=== PATIENT | male | born 1930 | race Caucasian/White ===

== ENCOUNTER 2016-09-10 15:37 | Observation (INO) | payer MEDICARE ==
[2016-09-10] MEDS ORDERED: cefTRIAXone(*) 1 GM in NS 0.9% 50 ML* 50 ML IVPB ONE (16:44)
[2016-09-10] MEDS ORDERED: Azithromycin IV(*) 500 MG in NS 0.9% 250 ML* 250 ML IVPB ONE (16:45)
[2016-09-10] MEDS: NS 0.9% 1000 ML* 3,000 ML IV ONE ×2 (17:17→18:04)
[2016-09-10 17:41] LABS: Hematocrit 42 % (42-52); Hemoglobin 14.2 g/dl (14.0-18.0); Mean Corpuscular HGB Conc 34 g/dl (31-36); Mean Corpuscular Hemoglobin 33 pg (27-31); Mean Corpuscular Volume 95 fL (80-94); Red Blood Count 4.37 10^6/ul (4.0-5.4); Red Cell Distribution Width 14 % (10.5-15); White Blood Count 5.7 10^3/ul (3.5-10.8)
[2016-09-10 17:43] LABS: Add Diff/Slide Review? Slide Review Added; Comments Flag Yes
[2016-09-10 17:47] LABS: Albumin 3.8 g/dL (3.2-5.2); BUN/Creatinine Ratio 16.5 (8-20); C Reactive Protein 28.87 mg/L (< 5.00); Calcium 8.5 mg/dL (8.6-10.3); EGFR African American 87.9 (>60); EGFR Non-African American 68.3 (>60); Globulin 2.6 g/dL (2-4); Potassium 3.4 mmol/L (3.5-5.0); Total Bilirubin 1.3 mg/dL (0.2-1.0); Total Protein 6.4 g/dL (6.4-8.9)
[2016-09-10 17:49] LABS: Troponin I 0.03 ng/mL (<0.04)
[2016-09-10 18:08] LABS: Mean Platelet Volume 9 um3 (7.4-10.4)
[2016-09-10 18:10] LABS: Add Path Review? YES; Eosinophils % 1 % (0-6); Immature Granulocytes 28 % (0-9); Neutrophil % 43 % (38-83); RBC Morphology Normal (Normal); Reactive Lymph % 2 % (0-6)
[2016-09-10 18:38] LABS: Urine Bacteria Absent (Absent); Urine Bilirubin Negative (Negative); Urine Glucose Negative (Negative); Urine Nitrite Negative (Negative)
--- NOTE | 2016-09-10 18:48 | RAD ---
INDICATION: Cough and fever COMPARISON: Most recent comparison chest x-ray is dated May 19, 2015 TECHNIQUE: PA and lateral views of the chest were obtained. FINDINGS: The heart and mediastinum are normal in size and contour. The lungs are grossly clear. There is no evidence of large pleural effusion. Visualized bones are normal for the patient's age. There is no radiographic evidence of free air beneath the diaphragm IMPRESSION: No radiographic evidence of acute cardiopulmonary disease.
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
[2016-09-10] MEDS ORDERED: Ondansetron INJ* 2 MG/ML VIAL IV PRN (19:27)
[2016-09-10] MEDS ORDERED: Acetaminophen TAB* 325 MG PO PRN (19:27)
[2016-09-10] MEDS ORDERED: NS 0.9% 1000 ML* 1,000 ML IV SCH (19:30)
[2016-09-10] MEDS ORDERED: Potassium Chlor TAB* 20 MEQ TAB.ER PO ONE (19:34)
[2016-09-10] MEDS: Heparin VIAL(*) 5000 UNITS/ML VIAL (FIVE THOUSAND) SUBCUT SCH (21:27)
[2016-09-11] MEDS: Heparin VIAL(*) 5000 UNITS/ML VIAL (FIVE THOUSAND) SUBCUT SCH (04:54)
[2016-09-11 07:08] LABS: Hematocrit 39 % (42-52); Hemoglobin 13.3 g/dl (14.0-18.0); Mean Corpuscular HGB Conc 34 g/dl (31-36); Mean Corpuscular Hemoglobin 33 pg (27-31); Mean Corpuscular Volume 96 fL (80-94); Mean Platelet Volume 8 um3 (7.4-10.4); Red Blood Count 4.06 10^6/ul (4.0-5.4); Red Cell Distribution Width 14 % (10.5-15); White Blood Count 4.4 10^3/ul (3.5-10.8)
[2016-09-11 07:09] LABS: Comments Flag Yes
[2016-09-11 07:26] LABS: BUN/Creatinine Ratio 11.4 (8-20); Calcium 8.2 mg/dL (8.6-10.3); EGFR African American 105.4 (>60); EGFR Non-African American 81.9 (>60); Potassium 3.8 mmol/L (3.5-5.0)
[2016-09-11] MEDS ORDERED: Famotidine TAB* 20 MG PO SCH (07:30)
[2016-09-11 07:56] VITALS: BP 150/58
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
[2016-09-11] MEDS ORDERED: amLODIPine TAB* 5 MG PO SCH (09:00)
[2016-09-11] MEDS ORDERED: Aspirin EC Low Dose* 81 MG TAB.EC PO SCH (09:00)
[2016-09-11] MEDS ORDERED: Venlafaxine EXT RELEASE CAP* 75 MG PO SCH ×2 (09:00)
[2016-09-11] MEDS ORDERED: Timolol 0.25% OPHTH.SOLN* BTL OPHTHALMIC SCH (09:00)
--- NOTE | 2016-09-11 13:22 | PN ---
Subjective Date of Service: 09/11/16 Interval History: Pt is feeling well. He feels much improved today compared to yesterday. He states he now realizes how ill he was yesterday. He states he is still coughing but not bringing up any sputum. He wants to go home this AM. Objective Vital Signs 09/10/16 09/10/16 09/10/16 19:40 20:00 20:30 Temperature 98.5 F Pulse Rate 64 66 64 Respiratory 20 Rate Blood Pressure 120/58 109/55 130/49 (mmHg) O2 Sat by Pulse 95 95 97 Oximetry 09/10/16 09/10/16 09/11/16 20:32 23:21 04:25 Temperature 98.5 F 98.5 F Pulse Rate 64 56 54 Respiratory 20 17 Rate Blood Pressure 130/49 130/61 141/64 (mmHg) O2 Sat by Pulse 97 97 96 Oximetry 09/11/16 09/11/16 07:50 08:00 Temperature 98.4 F Pulse Rate 61 Respiratory 18 Rate Blood Pressure 150/58 (mmHg) O2 Sat by Pulse 99 99 Oximetry Oxygen Devices in Use Now: None Appearance: Elderly male sitting on the edge of the bed eating breakfast, NAD Eyes: No Scleral Icterus Ears/Nose/Mouth/Throat: Mucous Membranes Moist Respiratory: Symmetrical Chest Expansion and Respiratory Effort, Clear to Auscultation - few crackles R mid lung zone Cardiovascular: NL Sounds; No Murmurs; No JVD, RRR, No Edema Extremities: No Clubbing, Cyanosis Skin: No Rash or Ulcers, No Nodules or Sclerosis, - - + bruising and minimal skin tears to B/L forearms Neurological: Alert and Oriented x 3 Result Diagrams: 09/11/16 06:56 09/11/16 06:56 Additional Lab and Data: Lab Results 09/10/16 09/10/16 09/10/16 Range/Units 17:25 17:25 17:25 WBC 5.7 (3.5-10.8) 10^3/ul RBC 4.37 (4.0-5.4) 10^6/ul Hgb 14.2 (14.0-18.0) g/dl Hct 42 (42-52) % MCV 95 H (80-94) fL MCH 33 H (27-31) pg MCHC 34 (31-36) g/dl RDW 14 (10.5-15) % Plt Count 93 L (150-450) 10^3/ul MPV 9 (7.4-10.4) um3 Immature Gran % (Auto) 28 H (0-9) % Neut % (Auto) 69.4 (38-83) % Lymph % (Auto) 11.4 L (25-47) % Sharp % (Auto) 17.6 H (1-9) % Eos % (Auto) 1.3 (0-6) % Baso % (Auto) 0.3 (0-2) % Absolute Neuts (auto) 4.0 (1.5-7.7) 10^3/ul Absolute Lymphs (auto) 0.7 L (1.0-4.8) 10^3/ul Absolute Monos (auto) 1.0 H (0-0.8) 10^3/ul Absolute Eos (auto) 0.1 (0-0.6) 10^3/ul Absolute Basos (auto) 0 (0-0.2) 10^3/ul Absolute Nucleated RBC 0.01 10^3/ul Neutrophils % 43 (38-83) % Band Neutrophils % 28 H (0-8) % Lymphocytes % 10 L (25-47) % Reactive Lymphs % 2 (0-6) % Monocytes % 16 H (0-13) % Eosinophils % 1 (0-6) % Nucleated RBC % 0.2 Normal RBC Morphology Normal (Normal) Hem Pathologist Commnt Pending INR (Anticoag Therapy) 0.98 (0.89-1.11) APTT 27.7 (26.0-36.3) seconds Sodium 132 L (133-145) mmol/L Potassium 3.4 L (3.5-5.0) mmol/L Chloride 99 L (101-111) mmol/L Carbon Dioxide 26 (22-32) mmol/L Anion Gap 7 (2-11) mmol/L BUN 17 (6-24) mg/dL Creatinine 1.03 (0.67-1.17) mg/dL Est GFR ( Amer) 87.9 (>60) Est GFR (Non-Af Amer) 68.3 (>60) BUN/Creatinine Ratio 16.5 (8-20) Glucose 101 H (70-100) mg/dL Lactic Acid (0.5-2.0) mmol/L Calcium 8.5 L (8.6-10.3) mg/dL Total Bilirubin 1.30 H (0.2-1.0) mg/dL AST 35 (13-39) U/L ALT 26 (7-52) U/L Alkaline Phosphatase 61 (34-104) U/L Troponin I 0.03 (<0.04) ng/mL C-Reactive Protein 28.87 H (< 5.00) mg/L Total Protein 6.4 (6.4-8.9) g/dL Albumin 3.8 (3.2-5.2) g/dL Globulin 2.6 (2-4) g/dL Albumin/Globulin Ratio 1.5 (1-3) Urine Color Urine Appearance Urine pH (5-9) Ur Specific [place] (1.010-1.030) Urine Protein (Negative) Urine Ketones (Negative) Urine Blood (Negative) Urine Nitrate (Negative) Urine Bilirubin (Negative) Urine Urobilinogen (Negative) Ur Leukocyte Esterase (Negative) Urine WBC (Auto) (Absent) Urine RBC (Auto) (Absent) Urine Bacteria (Absent) Urine Glucose (Negative) 09/10/16 09/10/16 Range/Units 17:25 18:16 WBC (3.5-10.8) 10^3/ul RBC (4.0-5.4) 10^6/ul Hgb (14.0-18.0) g/dl Hct (42-52) % MCV (80-94) fL MCH (27-31) pg MCHC (31-36) g/dl RDW (10.5-15) % Plt Count (150-450) 10^3/ul MPV (7.4-10.4) um3 Immature Gran % (Auto) (0-9) % Neut % (Auto) (38-83) % Lymph % (Auto) (25-47) % Sharp % (Auto) (1-9) % Eos % (Auto) (0-6) % Baso % (Auto) (0-2) % Absolute Neuts (auto) (1.5-7.7) 10^3/ul Absolute Lymphs (auto) (1.0-4.8) 10^3/ul Absolute Monos (auto) (0-0.8) 10^3/ul Absolute Eos (auto) (0-0.6) 10^3/ul Absolute Basos (auto) (0-0.2) 10^3/ul Absolute Nucleated RBC 10^3/ul Neutrophils % (38-83) % Band Neutrophils % (0-8) % Lymphocytes % (25-47) % Reactive Lymphs % (0-6) % Monocytes % (0-13) % Eosinophils % (0-6) % Nucleated RBC % Normal RBC Morphology (Normal) Hem Pathologist Commnt INR (Anticoag Therapy) (0.89-1.11) APTT (26.0-36.3) seconds Sodium (133-145) mmol/L Potassium (3.5-5.0) mmol/L Chloride (101-111) mmol/L Carbon Dioxide (22-32) mmol/L Anion Gap (2-11) mmol/L BUN (6-24) mg/dL Creatinine (0.67-1.17) mg/dL Est GFR ( Amer) (>60) Est GFR (Non-Af Amer) (>60) BUN/Creatinine Ratio (8-20) Glucose (70-100) mg/dL Lactic Acid 0.9 (0.5-2.0) mmol/L Calcium (8.6-10.3) mg/dL Total Bilirubin (0.2-1.0) mg/dL AST (13-39) U/L ALT (7-52) U/L Alkaline Phosphatase (34-104) U/L Troponin I (<0.04) ng/mL C-Reactive Protein (< 5.00) mg/L Total Protein (6.4-8.9) g/dL Albumin (3.2-5.2) g/dL Globulin (2-4) g/dL Albumin/Globulin Ratio (1-3) Urine Color Yellow Urine Appearance Clear Urine pH 6.0 (5-9) Ur Specific [place] 1.006 L (1.010-1.030) Urine Protein Negative (Negative) Urine Ketones Negative (Negative) Urine Blood 1+ H (Negative) Urine Nitrate Negative (Negative) Urine Bilirubin Negative (Negative) Urine Urobilinogen Negative (Negative) Ur Leukocyte Esterase Negative (Negative) Urine WBC (Auto) Trace(0-5/hpf) (Absent) Urine RBC (Auto) Trace(0-2/hpf) (Absent) Urine Bacteria Absent (Absent) Urine Glucose Negative (Negative) Assess/Plan/Problems-Billing Dr. Navarro is an 86 yo M who has a h/o CAD, HTN and HLD who presented to the ER with c/o fever and fatigue and was admitted for possible CAP. - Patient Problems (1) CAP (community acquired pneumonia) Status: Acute Code(s): J18.9 - PNEUMONIA, UNSPECIFIED ORGANISM SNOMED Code(s ): 346614949 Comment: While CXR negative for infiltrate, focal crackles were heard on exam. ? bacterial pna that had not "blossomed" on CXR due to volume depletion vs viral pna. Will continue to treat with levaquin to complete 6 more days of therapy. He understands that the diagnosis of pnuemonia is presumtive and that if any other symptoms develop he should be re-evaluated. Follow up with Dr. Whyte shortly after d/c. (2) CAD (coronary artery disease) Status: Acute Code(s): I25.10 - ATHSCL HEART DISEASE OF [place] CORONARY ARTERY W/O ANG PCTRS SNOMED Code(s): 53888932 Comment: No complaints at this time. Will continue home medication regimen. (3) HTN (hypertension) Status: Acute Code(s): I10 - ESSENTIAL (PRIMARY) HYPERTENSION SNOMED Code(s) : 00520350 Comment: BP is under fair control. Will continue home medication regimen ( his ACEI had been held on admission-resume on d/c). (4) HLD (hyperlipidemia) Status: Acute Code(s): E78.5 - HYPERLIPIDEMIA, UNSPECIFIED SNOMED Code(s): 45823637 Comment: Continue lipitor. (5) DVT prophylaxis Status: Acute Code(s): GHG5231 - SNOMED Code(s): 597005692 Comment: SQ heparin (pt has refused)
[2016-09-11] MEDS ORDERED: Atorvastatin* 20 MG TAB PO SCH (17:00)
[2016-09-11] MEDS ORDERED: cefTRIAXone VIAL(*) 1,000 MG in NS 0.9% 50 ML* 50 ML IVPB SCH (17:00)
[2016-09-11] MEDS ORDERED: Azithromycin IV(*) 500 MG in NS 0.9% 250 ML* 250 ML IVPB SCH (18:00)
--- NOTE | 2016-09-12 13:51 | DS ---
CC: Dr. Whyte * DISCHARGE SUMMARY: DATE OF ADMISSION: 09/10/16 DATE OF DISCHARGE: 09/11/16 PRIMARY CARE PROVIDER: Dr. Whyte. PRINCIPAL DIAGNOSIS: Probable community-acquired pneumonia. SECONDARY DIAGNOSES: 1. Hypertension. 2. Hyperlipidemia. 3. Coronary artery disease. 4. Depression. 5. Gastroesophageal reflux disease. 6. Carotid artery disease. DISCHARGE MEDICATIONS: 1. Venlafaxine 75 mg p.o. daily. 2. Amlodipine 2.5 mg p.o. daily. 3. Fosinopril 40 mg p.o. daily. 4. Aspirin 81 mg p.o. daily. 5. Lipitor 20 mg p.o. daily. 6. Ranitidine 75 mg p.o. b.i.d. 7. Timolol ophthalmic one drop to both eyes daily. 8. Levofloxacin 500 mg p.o. daily x6 days. 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 The patient had recently traveled to [place] for a family reunion and while in [place], he noted that he had a low- grade fever. He also felt fatigued. He was not feeling very well as he had a decreased appetite. He had a fall. He went to an emergency room in [place] for evaluation. On this past Sunday, he felt somewhat improved, however, on the day prior to and the day of admission, the patient again had fevers, chills, and felt poor. The patient presented to the emergency room where he was found to have 28% bands on his CBC as well as new thrombocytopenia. The patient was admitted for a possible community-acquired pneumonia. While the patient's chest x-ray did not show any clear infiltrate, it is believed that the patient was likely volume deplete. He received 3 L of normal saline and with this on the day after admission, he felt markedly improved. The patient does have cough but is still not producing any sputum. The patient feels so much better today, in fact that he wants to go home. At this point, the patient will be discharged home on levofloxacin 500 mg p.o. daily for another 6 days. He does understand that if he begins to feel poorly again, he is to return to the emergency room. Patient does state that he will contact his primary care provider to get an appointment for later this week for followup. FOLLOWUP CONCERNS: Dr. 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 He is to follow up with Dr. Whyte on 09/13/16 at 8:20 a.m. ACTIVITY LEVEL: As tolerated. DIET: Heart healthy. CONDITION ON DISCHARGE: Stable. TIME SPENT: 35 minutes was spent discharging this patient. [id number]/[facility] #: [id number] FILIBERTO
== END 2016-09-11 09:50 | disposition home or self-care (01) ==
LOC: ED 15:37 → MED 19:22
PROVIDERS: ADMIT Internal Medicine; ATTEND Hospitalist
DX: R50.9 Fever, unspecified (principal); R53.83 Other fatigue; I10 Essential (primary) hypertension; E78.5 Hyperlipidemia, unspecified; I25.10 Atherosclerotic heart disease of native coronary artery without angina pectoris; K21.9 Gastro-esophageal reflux disease without esophagitis; F32.9 Major depressive disorder, single episode, unspecified; Z79.82 Long term (current) use of aspirin; Z79.899 Other long term (current) drug therapy; Z88.8 Allergy status to other drugs, medicaments and biological substances; I25.2 Old myocardial infarction; Z95.5 Presence of coronary angioplasty implant and graft; Z87.891 Personal history of nicotine dependence
CPT/HCPCS: 36415; 71020; 80048; 80053; 81003; 81015; 83605; 84484; 85025; 85060; 85610; 85730; 86140; 86618; 87040; 87086; 87899; 96365; 96367; 99283; A9270-GY; G0378; J0456; J0696; J1644

== ENCOUNTER 2017-06-13 13:37 | Emergency (ER) | payer MEDICARE ==
[2017-06-13] MEDS ORDERED: Tetracaine 0.5% OPTH.SOL 4 ML* 1 DROP BTL LEFT EYE ONE (13:55)
[2017-06-13] MEDS ORDERED: Fluorescein Sod TOPICAL 0.6* 0.6 MG TEST OPHTHALMIC ONE (13:55)
[2017-06-13 14:29] VITALS: BP 125/72
--- NOTE | 2017-06-13 18:22 | ED ---
Wellington Blanca Angela, scribed for Buzz Garcia MD on 06/13/17 at 1411 . Throat Pain/Nasal Congestion - HPI Summary HPI Summary: This pt is a 87 y/o male presenting to [facility] c/o right eye erythema and discharge today. Pt states his right eye is painful, pruritic, and has photophobia. Pt rates his eye pain 2 out of 10 in severity. He describes the discharge from his eye as clear running down his nose. Pt reports his vision has not been affected. Denies blurry vision or foreign body sensation. Denies trauma or injury to his eye. Pt notes he has mowed the lawn in the past few days. Pt reports this is similar to a corneal abrasion he had "years ago." PMHx includes glaucoma, for which he uses drops. Pt uses artificial tears for dry eyes. - History of Current Complaint Chief Complaint: EDEyeProblem Time Seen by Provider: 06/13/17 13:55 Hx Obtained From: Patient Onset/Duration: Still Present Severity: Moderate Associated Signs And Symptoms: Negative: Dysphagia, FB Sensation, Drooling, Wheezing, Hoarseness, Sinus Discomfort, Nasal Discharge Cough: None Related History: Other (Noted In Comments) - no injury or trauma to his eye. - Allergies/Home Medications Allergies/Adverse Reactions: Allergies Allergy/AdvReac Type Severity Reaction Status Date / Time niacin Allergy See Comment Verified 06/13/17 14:08 Horse serum Allergy Unknown Unknown Uncoded 12/29/15 11:40 Reaction Details Home Medications: Home Medications Aspirin EC TAB* [Ecotrin EC Low Dose 81 MG*] 81 mg PO DAILY 06/13/17 [History Confirmed 06/13/17] Atorvastatin* [Lipitor*] 20 mg PO DAILY 06/13/17 [History Confirmed 06/13/17] Fosinopril (NF) [Monopril (NF)] 40 mg PO DAILY 06/13/17 [History Confirmed 06/13] Ranitidine TAB (NF) [Zantac TAB (NF)] 150 mg PO DAILY 06/13/17 [History Confirmed 06/13/17] Venlafaxine EXT RELEASE CAP* [Effexor Xr CAP*] 75 mg PO DAILY 06/13/17 [History Confirmed 06/13/17] amLODIPine TAB* [Norvasc 5 mg TAB*] 5 mg PO DAILY 06/13/17 [History Confirmed ] PMH/Surg Hx/FS Hx/Imm Hx Cardiovascular History: Reports: Hx Angioplasty - mi with angioplasty 1994, Hx Coronary Artery Disease, Hx Hypercholesterolemia, Hx Hypertension Denies: Hx Cardiac Arrest, Hx Cardiomegaly, Hx Deep Vein Thrombosis Respiratory History: Reports: Hx Seasonal Allergies GI History: Reports: Hx Gastroesophageal Reflux Disease, Other GI Disorders - gerd History: Reports: Hx Benign Prostatic Hyperplasia - Slightly large Sensory History: Reports: Hx Cataracts, Hx Contacts or Glasses, Hx Glaucoma Denies: Hx Hearing Aid, Hx Hearing Problem Opthamlomology History: Reports: Hx Cataracts, Hx Contacts or Glasses, Hx Glaucoma Psychiatric History: Reports: Hx Depression - Moderate - Cancer History Cancer Type, Location and Year: Skin Cancer - Surgical History Surgery Procedure, Year, and Place: tonsillectomy, appendectomy , vasectomy , laproscopic gallbladder, ski injury Infectious Disease History: No Infectious Disease History: Reports: History Other Infectious Disease - Measles , mumps Denies: Traveled Outside the [place] in Last 30 Days - Family History Known Family History: Positive: Other - Alzheimer to father. Leukemia to mother - Social History Alcohol Use: Would drink 1-2 glasses a day but recently changed habit Substance Use Type: Reports: None Smoking Status (MU): Former Smoker Type: Cigarettes Review of Systems Negative: Fever, Chills Eyes: Other - right eye pain Positive: Photophobia, Drainage - right eye, Erythema - right eye. Negative: Blurred Vision Gastrointestinal: Negative Genitourinary: Negative Musculoskeletal: Negative Skin: Negative Neurological: Negative All Other Systems Reviewed And Are Negative: Yes Physical Exam - Summary Physical Exam Summary: Appearance: Well appearing, no pain distress Skin: warm, dry, reflects adequate perfusion Head/face: normal Eyes: EOMI, CARLOS bilaterally. Scleral edema and ecchymosis on the right. Injection of the right eye. Light yellow discharge. No fluorescein uptake. No foreign body seen with inversion of the eyelids. Pain resolved with tetracaine. Vision grossly normal. ENT: normal Neck: supple, non-tender Respiratory: CTA, breath sounds present Cardiovascular: RRR, pulses symmetrical Abdomen: non-tender, soft Bowel: present Musculoskeletal: normal, strength/ROM intact Neuro: normal, sensory motor intact, A&Ox3 Triage Information Reviewed: Yes Vital Signs On Initial Exam: Initial Vitals Temp Pulse Resp BP Pulse Ox 99.3 F 69 14 142/70 97 06/13/17 13:39 06/13/17 13:39 06/13/17 13:39 06/13/17 13:39 06/13/17 13:39 Vital Signs Reviewed: Yes Diagnostics - Vital Signs Vital Signs Temp Pulse Resp BP Pulse Ox 06/13/17 13:39 99.3 F 69 14 142/70 97 - Laboratory Lab Statement: Any lab studies that have been ordered have been reviewed, and results considered in the medical decision making process. EENT Course/Dx - Course Assessment/Plan: On exam, there is injection of the right eye with light yellow discharge. There is no fluorescein uptake. No foreign body seen with inversion of the eyelids. Pain resolved with tetracaine. Vision is grossly normal. His pupils are midrange and reactive without photophobia. There is significant chemosis. There is no foreign body. He is started on tobramycin eyedrops and will follow-up with ophthalmology in the morning. - Differential Diagnoses Differential Diagnoses: Other - Allergic conjunctivitis versus bacterial/viral. Iritis/uveitis. Angle-closure glaucoma. - Diagnoses Provider Diagnoses: Conjunctivitis of right eye Discharge - Sign-Out/Discharge Documenting (check all that apply): Discharge/Admit/Transfer - Discharge to home - Discharge Plan Condition: Improved Disposition: HOME Prescriptions: Tobramycin 0.3% OPHTH.SIMONE* 1 drop RIGHT EYE Q4H #1 btl Patient Education Materials: Conjunctivitis (ED) Referrals: Ozzy Rojas MD [Medical Doctor] - Additional Instructions: The conjunctivitis is likely allergic versus infectious. We'll cover you for an infectious source. If this does not improve quickly see the eye doctor and have it further investigated. The eye will be numb for about 2 hours. Return if worse, eye pain, new symptoms or other concerns. - Billing Disposition and Condition Condition: IMPROVED Disposition: HOME The documentation as recorded by the Wellington gates Angela accurately reflects the service I personally performed and the decisions made by me, Buzz Garcia MD.
== END 2017-06-13 14:28 | disposition home or self-care (01) ==
LOC: ED 13:37
DX: H10.31 Unspecified acute conjunctivitis, right eye (principal); I25.10 Atherosclerotic heart disease of native coronary artery without angina pectoris; I10 Essential (primary) hypertension; E78.00 Pure hypercholesterolemia, unspecified; K21.9 Gastro-esophageal reflux disease without esophagitis; N40.0 Benign prostatic hyperplasia without lower urinary tract symptoms; F32.9 Major depressive disorder, single episode, unspecified; Z85.828 Personal history of other malignant neoplasm of skin; Z88.8 Allergy status to other drugs, medicaments and biological substances; Z87.891 Personal history of nicotine dependence
CPT/HCPCS: 99282; A9270-GY